=== PATIENT | female | born 1960 | race Caucasian/White ===

== ENCOUNTER 2021-07-22 15:06 | Outpatient (CLI) | payer OTHER | END 2021-07-22 15:07 | disposition home or self-care (01) | LOC: BICMAMMO 15:06 | PROVIDERS: ATTEND Nurse Practitioner Family | DX: Z12.31 Encounter for screening mammogram for malignant neoplasm of breast (principal); Z80.3 Family history of malignant neoplasm of breast | CPT/HCPCS: 77063; 77067 ==

== ENCOUNTER 2022-02-15 11:37 | Outpatient (CLI) | payer OTHER | END 2022-02-15 11:38 | disposition home or self-care (01) | LOC: BICCT 11:37 | PROVIDERS: ATTEND Nurse Practitioner Family | DX: K21.9 Gastro-esophageal reflux disease without esophagitis (principal); K76.0 Fatty (change of) liver, not elsewhere classified; N13.30 Unspecified hydronephrosis; N28.9 Disorder of kidney and ureter, unspecified | CPT/HCPCS: 71260; 74177; 82565 ==